=== PATIENT | male | born 1950 | race Caucasian/White ===

== ENCOUNTER 2018-09-23 03:32 | Emergency (ER) | payer MEDICAID, OTHER ==
[~2018-09-23] VITALS: Ht 165.1 cm; Wt 72.6 kg
[2018-09-23 03:37] VITALS: BP_SYST 131
[2018-09-23] MEDS ORDERED: CYCLOBENZAPRINE HCL 10 MG TABLET (FLEXERIL) PO ONE (04:15)
[2018-09-23] MEDS ORDERED: IBUPROFEN 600 MG TABLET PO ONE (04:15)
[2018-09-23 05:03] VITALS: BP_SYST 131
== END 2018-09-23 05:03 | disposition home or self-care (01) ==
LOC: SED 03:32
DX: S16.1XXA Strain of muscle, fascia and tendon at neck level, initial encounter (principal); V43.62XA Car passenger injured in collision with other type car in traffic accident, initial encounter; Y93.89 Activity, other specified; Y92.410 Unspecified street and highway as the place of occurrence of the external cause; Y99.8 Other external cause status
CPT/HCPCS: 72040-TC; 99283